=== PATIENT | female | born 1985 | race Caucasian/White ===

== ENCOUNTER → 2016-12-05 | Emergency (ER) | payer SELFPAY ==
[~2016-12-05] VITALS: Ht 175.3 cm; Wt 60.8 kg
[~2016-12-05] MED LIST: MINOCYCLINE HCL45 MG PO
[2016-12-05 09:40] VITALS: BP 111/49
== END | disposition left against medical advice (07) ==
LOC: EMR 09:55
DX: R10.9 Unspecified abdominal pain (principal); K92.1 Melena; Z53.21 Procedure and treatment not carried out due to patient leaving prior to being seen by health care provider
CPT/HCPCS: 99281